=== PATIENT | female | born 2000 | race African-American/Black ===

== ENCOUNTER 2020-09-17 14:22 | Emergency (ER) | payer OTHER ==
[~2020-09-17] VITALS: Ht 162.6 cm; Wt 117.9 kg
[2020-09-17 15:31] LABS: URINE BLOOD NEGATIVE (Negative); URINE CLARITY CLEAR; URINE COLOR YELLOW; URINE GLUCOSE-RANDOM* NEGATIVE (Negative); URINE KETONES TRACE (Negative); URINE LEUKOCYTES-REFLEX NEGATIVE (Negative); URINE NITRITE-REFLEX NEGATIVE (Negative); URINE PROTEIN (DIPSTICK) TRACE (Negative); URINE SPECIFIC GRAVITY >= 1.030 (1.005-1.035)
[2020-09-17 15:34] LABS: ICTOTEST (BILI CONFIRMATORY) Negative (Negative); URINE BILIRUBIN NEGATIVE (Negative)
[2020-09-17 16:11] LABS: ABSOLUTE NEUTROPHILS 3.4 thou/uL (1.4-8.2); BASOPHILS 0.7 % (0.0-2.0); EOSINOPHILS 2.7 % (0.0-3.0); HEMATOCRIT 37.3 % (37.0-47.0); HEMOGLOBIN 12.6 gm/dL (12.0-15.0); LYMPHOCYTES 24.2 % (24.0-44.0); MCH 27.6 pg (26.0-34.0); MCHC 33.9 g/dL (28.0-37.0); MCV 81.3 fL (80.0-100.0); MONOCYTES 11.8 % (1.0-8.0); PLATELET COUNT 337 thou/uL (150-400); POLYS 60.6 % (36.0-66.0); RBC 4.58 mil/uL (4.20-5.00); RDW 14.1 % (10.5-14.5); WBC 5.7 thou/uL (4.0-11.0)
[2020-09-17 16:20] LABS: CALCIUM 9.1 mg/dL (8.5-10.1); CREATININE 0.7 mg/dL (0.6-1.0); POTASSIUM 3.6 mmol/L (3.5-5.1)
[2020-09-17 16:26] LABS: ALBUMIN 3.5 g/dL (3.4-5.0); DIRECT BILIRUBIN 0.1 mg/dL (<0.1-0.2); TOTAL BILIRUBIN 0.7 mg/dL (0.2-1.0); TOTAL PROTEIN 7.4 g/dL (6.4-8.2)
[2020-09-17] MEDS ORDERED: ZOFRAN ODT4 MG PO (16:51)
[2020-09-17] MEDS ORDERED: NORCO5 PO (16:51)
[2020-09-17 16:57] VITALS: BP 122/75
== END 2020-09-17 16:57 | disposition home or self-care (01) ==
LOC: ER 14:22
PROVIDERS: Emergency Medicine
DX: O03.89 Complete or unspecified spontaneous abortion with other complications (principal); R10.10 Upper abdominal pain, unspecified; Z3A.09 9 weeks gestation of pregnancy

== ENCOUNTER 2020-09-25 18:45 | Emergency (ER) | payer BC, OTHER ==
[~2020-09-25] VITALS: Ht 162.6 cm; Wt 119.8 kg
[~2020-09-25 18:45] MED LIST: NORCO5 PO; ZOFRAN ODT4 MG PO
[2020-09-25 19:45] VITALS: BP 129/81
== END 2020-09-25 21:01 | disposition home or self-care (01) ==
LOC: ER 18:45
DX: U07.1 COVID-19 (principal)